=== PATIENT | male | born 1970 ===

== ENCOUNTER → 2022-12-31 | Outpatient (CLI) | payer OTHER ==
[2022-12-31 20:32] LABS: Anion Gap 8 mmol/L (6-16); Blood Urea Nitrogen 20 mg/dL (8-24); Bun/Creatinine Ratio 20.3 (12.0-20.0); CHOL/HDL RATIO 3.7; CO2, Blood 27 mmol/L (21-32); Calcium, Blood 8.8 mg/dL (8.5-10.1); Chloride, Blood 105 mmol/L (98-108); Cholesterol 150 mg/dL (50-200); Creatinine, Blood 0.98 mg/dL (0.60-1.20); Free Thyroxine 0.87 ng/dL (0.70-1.60); Glomerular Filtration Rate 93 (60-); Glucose, Blood 130 mg/dL (70-99); HDL Cholesterol 41 mg/dL (>39); LDL/HDL RATIO 1.6; Low Density Lipoprotein Chol 68 mg/dL (0-110); Potassium, Blood 3.7 mmol/L (3.5-5.5); Sodium, Blood 140 mmol/L (136-145); Triglycerides 207 mg/dL (30-160); Very Low Density Lipoprot Chol 41 mg/dL (6-32)
== END ==
LOC: LAB 17:40 → LAB SHORT 17:40
PROVIDERS: Nurse Practitioner Family
DX: E78.5 Hyperlipidemia, unspecified (principal); R73.03 Prediabetes; R63.5 Abnormal weight gain; I10 Essential (primary) hypertension
CPT/HCPCS: 80048; 80061; 83036; 84439; 84443

== ENCOUNTER 2024-06-14 08:36 | Emergency (ER) | payer OTHER ==
[~2024-06-14] VITALS: Ht 170.2 cm; Wt 127.0 kg
[2024-06-14 10:14] VITALS: BP 148/102
== END 2024-06-14 12:42 | disposition left against medical advice (07) ==
LOC: ER 08:36
DX: K91.840 Postprocedural hemorrhage of a digestive system organ or structure following a digestive system procedure (principal); G89.18 Other acute postprocedural pain; Z53.21 Procedure and treatment not carried out due to patient leaving prior to being seen by health care provider
CPT/HCPCS: 99281-25